=== PATIENT | male | born 1945 | race Caucasian/White ===

== ENCOUNTER → 2018-04-05 | Outpatient (CLI) | payer MEDICARE ==
[2018-04-05 10:04] LABS: HGB 13.2 gm/dL (13.0-17.5); MCH 31.1 pg (25.0-35.0); MCHC 32.3 g/dL (31.0-37.0); MCV 96.3 fL (80.0-100.0); Mean Platelet Volume 7.8; Platelet Count 193 k/uL (150-450); RBC 4.26 m/uL (4.30-5.90); RDW 13.7 % (11.5-15.5); WBC 8.2 k/uL (3.8-10.6)
[2018-04-05 10:13] LABS: Albumin 4.3 g/dL (3.5-5.0); Calcium 9.7 mg/dL (8.4-10.2); Potassium 4.7 mmol/L (3.5-5.1); Total Bilirubin 0.5 mg/dL (0.2-1.3); Total Protein 7.1 g/dL (6.3-8.2)
[2018-04-05 10:29] LABS: T4, Free (Free Thyroxine) 0.9 ng/dL (0.78-2.19)
[2018-04-05 10:43] LABS: PSA Annual Screen 3.09 ng/mL (0.00-4.00)
[2018-04-05 19:08] LABS: Hemoglobin A1C 6.1 % (4.0-6.0)
== END | disposition home or self-care (01) ==
LOC: LABWHC1 08:50
PROVIDERS: ATTEND Family Medicine
DX: Z00.00 Encounter for general adult medical examination without abnormal findings (principal); I25.10 Atherosclerotic heart disease of native coronary artery without angina pectoris; N52.01 Erectile dysfunction due to arterial insufficiency; E78.5 Hyperlipidemia, unspecified; E16.1 Other hypoglycemia; Z12.5 Encounter for screening for malignant neoplasm of prostate
CPT/HCPCS: 84439; 80061; 80053; 84443; 85027; 83036; 36415; G0103

== ENCOUNTER → 2021-05-10 | Outpatient (CLI) | payer MEDICARE ==
[2021-05-10 14:35] LABS: Basophils # (A) 0.15 X 10*3/uL (0.00-0.10); Basophils % (A) 1.6 %; Eosinophils # (A) 0.33 X 10*3/uL (0.04-0.35); Eosinophils % (A) 3.5 %; HCT 41.5 % (39.6-50.0); HGB 12.9 g/dL (13.0-17.0); Lymphocytes # (A) 2.32 X 10*3/uL (0.90-5.00); Lymphocytes % (A) 24.6 %; MCH 30.6 pg (27.0-32.0); MCHC 31.1 g/dL (32.0-37.0); MCV 98.6 fL (80.0-97.0); Mean Platelet Volume 12.3 fL (9.5-12.2); Monocytes # (A) 1.22 X 10*3/uL (0.20-1.00); Neutrophils # (A) 5.37 X 10*3/uL (1.80-7.70); Platelet Count 233 X 10*3/uL (140-440); RBC 4.21 X 10*6/uL (4.40-5.60); RDW 13.4 % (11.5-14.5); WBC 9.42 X 10*3/uL (4.50-10.00)
[2021-05-10 15:38] LABS: African American GFR (CKD) 65.9 (60.0-200.0); Albumin 4.3 g/dL (3.8-4.9); Albumin/Globulin Ratio 1.76 (1.60-3.17); Anion Gap 11.8 mmol/L (4.00-12.00); BUN/Creat Ratio 20.66 Ratio (12.00-20.00); Blood Urea Nitrogen 25.2 mg/dL (9.0-27.0); Calcium 9.8 mg/dL (8.7-10.3); Carbon Dioxide 21.4 mmol/L (21.6-31.8); Chol/HDL Ratio 3.33 Ratio; Globulin 2.4 g/dL (1.6-3.3); HDL Cholesterol 49.3 mg/dL (40.00-60.00); LDL Cholesterol,Calculated 88.1 mg/dL (0.0-131.0); Non-African American GFR(CKD) 56.8 (60.0-200.0); Potassium 4.9 mmol/L (3.5-5.5); T4, Free (Free Thyroxine) 1.17 ng/dL (0.800-1.800); Total Bilirubin 0.3 mg/dL (0.30-1.20); Total Protein 6.7 g/dL (6.2-8.2); VLDL Calculation 26.6 mg/dL (5.00-40.00)
== END | disposition home or self-care (01) ==
LOC: LABWHC1 07:26
PROVIDERS: ATTEND Family Medicine
DX: Z00.00 Encounter for general adult medical examination without abnormal findings (principal); Z12.5 Encounter for screening for malignant neoplasm of prostate; N18.9 Chronic kidney disease, unspecified; E78.5 Hyperlipidemia, unspecified; J45.909 Unspecified asthma, uncomplicated; N40.0 Benign prostatic hyperplasia without lower urinary tract symptoms; R73.9 Hyperglycemia, unspecified
CPT/HCPCS: 84439; 80061; 80053; 84443; 85025; 83036; 36415; G0103

== ENCOUNTER → 2024-05-15 | Outpatient (CLI) | payer MEDICARE ==
[2024-05-15 15:27] LABS: ALT 19 U/L (10-49); AST 23 U/L (14-35); Albumin 4.3 g/dL (3.8-4.9); Albumin/Globulin Ratio 1.87 Ratio (1.60-3.17); Alkaline Phosphatase 65 U/L (41-126); BUN/Creat Ratio 16.77 Ratio (12.00-20.00); Blood Urea Nitrogen 21.8 mg/dL (9.0-27.0); Calcium 9.6 mg/dL (8.7-10.3); Chloride 107 mmol/L (96-109); Chol/HDL Ratio 2.62 Ratio; Globulin 2.3 g/dL (1.6-3.3); Glucose 111 mg/dL (70-110); LDL Cholesterol,Calculated 69.9 mg/dL (0.0-131.0); Potassium 4.7 mmol/L (3.5-5.5); Sodium 140 mmol/L (135-145); Total Bilirubin 0.3 mg/dL (0.3-1.2); Total Protein 6.6 g/dL (6.2-8.2); VLDL Calculation 19.22 mg/dL (5.00-40.00)
[2024-05-15 15:36] LABS: Basophils # (A) 0.14 X 10*3/uL (0.00-0.10); Basophils % (A) 1.5 %; Eosinophils # (A) 0.39 X 10*3/uL (0.04-0.35); Eosinophils % (A) 4.2 %; HCT 40.9 % (39.6-50.0); HGB 12.7 g/dL (13.0-17.0); Lymphocytes # (A) 2.46 X 10*3/uL (0.90-5.00); Lymphocytes % (A) 26.5 %; MCH 30.3 pg (27.0-32.0); MCHC 31.1 g/dL (32.0-37.0); MCV 97.6 FL (80.0-97.0); Mean Platelet Volume 13.1 FL (9.5-12.2); Monocytes # (A) 1.29 X 10*3/uL (0.20-1.00); Monocytes % (A) 13.9 %; NRBC Per 100 WBC 0 X 10*3/uL (0.00-0.01); Neutrophils # (A) 4.98 X 10*3/uL (1.80-7.70); Neutrophils % (A) 53.7 %; Platelet Count 169 X 10*3/uL (140-440); RBC 4.19 X 10*6/uL (4.40-5.60); RDW 13.2 % (11.5-14.5); WBC 9.28 X 10*3/uL (4.50-10.00)
== END | disposition home or self-care (01) ==
LOC: LABWHC1 07:55
PROVIDERS: ATTEND Internal Medicine Geriatric Medicine
DX: Z13.29 Encounter for screening for other suspected endocrine disorder (principal); I10 Essential (primary) hypertension; R73.9 Hyperglycemia, unspecified; E78.5 Hyperlipidemia, unspecified; N40.0 Benign prostatic hyperplasia without lower urinary tract symptoms
CPT/HCPCS: 36415; 80053; 80061; 83036; 84153; 84443; 85025

== ENCOUNTER → 2024-06-03 | Outpatient (CLI) | payer MEDICARE ==
[2024-06-03 15:13] LABS: African American GFR (CKD) 50 (>60 ml/min/1.73 sqM); Blood Urea Nitrogen 32 mg/dL (9-20); Non-African American GFR(CKD) 43 (>60 ml/min/1.73 sqM)
--- NOTE | 2024-06-03 17:54 | CT ---
EXAMINATION TYPE: CT angio neck DATE OF EXAM: 06/03/2024 4:11 PM COMPARISON: None CLINICAL INDICATION: Male, 79 years old with history of I65.139 CARTIOD; hx of carotid stenosis TECHNIQUE: Axially acquired helical CT Angiogram of the Neck was obtained with and without contrast. Axial images are supplemented with coronal and sagittal MIP reconstructions. 3D reconstructions were also performed and were post-processed at an independent workstation. Estimated carotid stenosis was calculated using the NASCET criteria. Contrast used:65 mL of Isovue 370 with IV Contrast, Oral contrast used: None. CT DLP: 246.1 mGycm, Automated exposure control for dose reduction was used. FINDINGS: CTA NECK: Right Carotid System: The common carotid and external carotid arteries are patent. There is approximately 56 % stenosis at the carotid bifurcation secondary to calcified/noncalcified plaquing. The rest of the internal caroti d artery is patent. Left Carotid System: The common carotid and external carotid arteries are patent. There is approximately 50% stenosis at t he carotid bifurcation secondary to calcified/noncalcified plaquing. The rest of the internal carotid artery is patent. Vertebral arteries are patent without evidence hemodynamically significant stenosis. There is a domin ant right vertebral artery system. The left vertebral artery is diminutive. The left vertebral artery may terminate as the posterior inferior cerebellar artery. There is a three-vessel aortic arch. The origins of the great vessels are patent. No evidence of hemo dynamically significant stenosis. Partially visualized in the intracranial portion there is a 5 mm saccular aneurysm arising off the bi furcation of the right M1 segment IMPRESSION: 1. Calcified and noncalcified plaque at the carotid bifurcations with 56% stenosis on the right and 5 0% stenosis on the left. 2. 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 3. Dominant right vertebral artery system with diminutive left vertebral artery. [facility], , 06/03/2024 5:51 PM
== END | disposition home or self-care (01) ==
LOC: RADCTMAIN 14:25
PROVIDERS: ATTEND Internal Medicine Interventional Cardiology
DX: I65.09 Occlusion and stenosis of unspecified vertebral artery (principal); I65.23 Occlusion and stenosis of bilateral carotid arteries
CPT/HCPCS: 82565; 84520; 70498; 36415; Q9967

== ENCOUNTER → 2024-08-04 | Outpatient (CLI) | payer MEDICARE ==
--- NOTE | 2024-08-04 14:09 | CT ---
EXAMINATION TYPE: CT brain wo con DATE OF EXAM: 08/04/2024 1:56 PM COMPARISON: None. CLINICAL INDICATION: Male, 79 years old with history of G31.84 MILD COGNITIVE IMPAIRMENT, memory loss TECHNIQUE: CT of the brain is performed utilizing 3 mm thick sections through the posterior fossa and 3 mm thick sections through the remaining calvarium. Study is performed within 24 hours of arrival to the hospital. Contrast used: mL of , (none if empty) CT DLP: 1230 mGycm, Automated exposure control for dose reduction was used. FINDINGS: No abnormal hyperdensity is present to suggest an acute intracranial hemorrhage. No mass lesion is evident. No acute infarcts are evident. Minimal periventricular white matter hypodensity may be present likely on the basis of chronic white matter ischemic changes Ventricles and sulci are appropriate for the patient age. Paranasal sinuses and mastoid air cells within the [id number] are clear. IMPRESSION: 1. No acute intracranial process. Follow up MRI can be performed as clinically indicated. 2. Mild chronic appearing periventricular white matter ischemic-type changes. [facility], , 08/04/2024 2:07 PM
== END | disposition home or self-care (01) ==
LOC: RADCTMAIN 13:37
PROVIDERS: ATTEND Psychiatry & Neurology Psychiatry
DX: G31.84 Mild cognitive impairment of uncertain or unknown etiology (principal); R90.82 White matter disease, unspecified
CPT/HCPCS: 70450